=== PATIENT | female | born 1950 | race Caucasian/White ===

== ENCOUNTER 2022-05-26 01:40 | Emergency (ER) | payer MEDICARE, OTHER ==
[~2022-05-26] VITALS: Ht 154 cm; Wt 64.4 kg
[2022-05-26] MEDS ORDERED: methylPREDNISolone 125 MG (Solu-MEDROL) VIAL IV STA (02:04)
[2022-05-26 02:10] LABS: BASOPHILS % (AUTO) 1 % (0-10); EOSINOPHILS # (AUTO) 0.3 10^3/uL (0.0-0.3); EOSINOPHILS % (AUTO) 4 % (0-10); HEMATOCRIT 41 % (35-52); HEMOGLOBIN 13.8 g/dL (11.5-16.0); LYMPHOCYTES % (AUTO) 31 % (12-44); MEAN CORPUSCULAR HEMOGLOBIN 30 pg (25-34); MEAN CORPUSCULAR HGB CONC 34 g/dL (32-36); MEAN CORPUSCULAR VOLUME 90 fL (80-99); MEAN PLATELET VOLUME 9.7 fL (9.0-12.2); MONOCYTES # (AUTO) 0.6 10^3/uL (0.0-1.0); MONOCYTES % (AUTO) 9 % (0-12); NEUTROPHILS # (AUTO) 3.7 10^3/uL (1.8-7.8); NEUTROPHILS % (AUTO) 56 % (42-75); PLATELET COUNT 294 10^3/uL (130-400); WHITE BLOOD COUNT 6.6 10^3/uL (4.3-11.0)
--- NOTE | 2022-05-26 02:14 | ED Respiratory ---
General Chief Complaint: Respiratory Problems Stated Complaint: ASTHMA Nursing Triage Note: TO ED VIA POV AND AMBULATORY TO ROOM 7 WITH C/O ASTHMA ATTACK. PT STATES "ITS BEEN 25 YEARS SINCE I'VE HAD ONE". SITTING WATCHING TV WHEN STARTED APPROX 2000 TONIGHT. Source: patient History of Present Illness Date Seen by Provider: May 26, 2022 Time Seen by Provider: 01:55 Initial Comments PT ARRIVES VIA POV FROM HOME WITH A MALE PT STATES SHE IS HAVING AN "ASTHMA ATTACK" C/O SUDDEN ONSET OF SHORTNESS OF BREATH AND WHEEZING AT 2000 TONIGHT WHILE SITTING AND WATCHING TV PT STATES SHE HAS NOT HAD ANY PROBLEMS WITH ASTHMA FOR 25 YEARS AND HAS NOT HAD AN INHALER FOR 25 YEARS SHE DENIES ANY HISTORY OF SMOKING, SECOND HAND SMOKE, OR WOOD BURNING STOVE/FURNACE/FIREPLACE. NO CHEST PAIN NO SWELLING IN LEGS/FEET OR PAIN IN CALVES NO COUGH OR URI SYMPTOMS NO FEVER NO DIZZINESS OR SYNCOPE SHE STATES HER THROAT FEELS TIGHT NO SWELLING ANYWHERE NO RASH OR ITCHING ANYWHERE NO NEW MEDICATIONS, PRODUCTS OR EXPOSURES PT STATES SHE HAS HAD COVID VACCINE X 4, AND FLU VACCINE FOR THIS SEASON SHE MOVED FROM [place] TO [place], [place] 5 YEARS AGO, AND THEN MOVED FROM [place] TO [facility] 5 MONTHS AGO SHE HAS NOT SEE ANY DR RECENTLY, AND HAS A NEW PT APPOINTMENT WITH DR. TRIMBLE 06/21/22 SHE HAS HISTORY OF DIABETES--WAS ON INSULIN, THEN HAD GASTRIC BYPASS SURGERY 20 YEARS AGO, AND IS NOW ONLY ON ORAL DIABETIC MEDICATION. SHE HAS HISTORY OF THYROID CANCER MANY YEARS AGO--S/P THYROIDECTOMY AND EXTERNAL RADIATION. NO HISTORY OF HTN OR HEART DISEASE. Allergies and Home Medications Allergies Coded Allergies: Sulfa (Sulfonamide Antibiotics) (Verified Allergy, Unknown, 05/26/22) Patient Home Medication List Home Medication List Reviewed: Yes Review of Systems Review of Systems Constitutional: no symptoms reported EENTM: see HPI Respiratory: see HPI; No cough; wheezing Cardiovascular: no symptoms reported; No chest pain, No edema, No palpitations, No syncope Gastrointestinal: no symptoms reported Genitourinary: no symptoms reported Musculoskeletal: no symptoms reported Skin: no symptoms reported Psychiatric/Neurological: No Symptoms Reported Hematologic/Lymphatic: No Symptoms Reported Immunological/Allergic: no symptoms reported Past Tyvgylu-Uiylvs-Hvcziq Hx Patient Social History Tobacco Use?: No Smoking Status: Never a Smoker Smokeless Tobacco Frequency: Never a User Use of E-Cig and/or Vaping Jus: Never a User Substance use?: No Alcohol Use?: No Immunizations Up To Date Influenza Vaccine Up-to-Date: Yes; Up-to-Date COVID19 Vaccine Public Policy Manager: STATES 4 COVID VACCINES Past Medical History Surgeries: Yes (GASTRIC BYPASS 20 YEARS AGO; THYROIDECTOMY FOR CANCER) Abdominal, Thyroidectomy Respiratory: Yes Asthma Cardiac: No Neurological: No WEB APPLICATION TESTER History: Menopausal Genitourinary: No Gastrointestinal: Yes (GASTRIC BYPASS) Musculoskeletal: Yes Arthritis Endocrine: Yes (WAS ON INSULIN PRIOR TO GASTRIC BYPASS, NOW ON ORAL MEDICATION) Diabetes, Non-Insulin dep HEENT: No Cancer: Yes Thyroid Did You Recieve Any Treatments: Yes What Type of Treatment Did You: Radiation, Surgical Intervention THYROID CANCER--S/P TOTAL THYROIDECTOMY AND EXTERNAL RADIATION--MANY YEARS AGO Psychosocial: No Integumentary: No Blood Disorders: No Physical Exam Vital Signs - First Documented 05/26/22 05/26/22 01:52 02:29 Temp 36.5 Pulse 91 Resp 16 B/P (MAP) 176/104 (128) Pulse Ox 95 O2 Delivery Room Air O2 Flow Rate 0 FiO2 21 Capillary Refill : Less Than 3 Seconds Height: '" Weight: lbs. oz. kg; 27.00 BMI Method: General Appearance: WD/WN, no apparent distress, other (TALKS LOUDLY IN FULL SENTENCES. SHE HAS AUDIBLE EXPIRATORY WHEEZING--ALL UPPER AIRWAY NOISE, BUT DOES NOT APPEAR TO BE IN ANY DISCOMFORT OR DISTRESS. 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, no motor/sensory deficits, alert, normal mood/affect, oriented x 3 Skin: normal color, warm/dry Progress/Results/Core Measures Suspected Sepsis SIRS Temperature: Pulse: 91 Respiratory Rate: 16 Laboratory Tests 05/26/22 02:00: White Blood Count 6.6 Blood Pressure 176 /104 Mean: 128 Laboratory Tests 05/26/22 02:00: Creatinine 0.76, INR Comment 0.9, Platelet Count 294, Total Bilirubin 0.4 Results/Orders Lab Results Laboratory Tests Test 05/26/22 02:00 05/26/22 02:03 05/26/22 02:13 Range/Units White Blood Count 6.6 4.3-11.0 10^3/uL Red Blood Count 4.56 3.80-5.11 10^6/uL Hemoglobin 13.8 11.5-16.0 g/dL Hematocrit 41 35-52 % Mean Corpuscular Volume 90 80-99 fL Mean Corpuscular Hemoglobin 30 25-34 pg Mean Corpuscular Hemoglobin Concent 34 32-36 g/dL Red Cell Distribution Width 13.2 10.0-14.5 % Platelet Count 294 130-400 10^3/uL Mean Platelet Volume 9.7 9.0-12.2 fL Immature Granulocyte % (Auto) 0 % Neutrophils (%) (Auto) 56 42-75 % Lymphocytes (%) (Auto) 31 12-44 % Monocytes (%) (Auto) 9 0-12 % Eosinophils (%) (Auto) 4 0-10 % Basophils (%) (Auto) 1 0-10 % Neutrophils # (Auto) 3.7 1.8-7.8 10^3/uL Lymphocytes # (Auto) 2.0 1.0-4.0 10^3/uL Monocytes # (Auto) 0.6 0.0-1.0 10^3/uL Eosinophils # (Auto) 0.3 0.0-0.3 10^3/uL Basophils # (Auto) 0.0 0.0-0.1 10^3/uL Immature Granulocyte # (Auto) 0.0 0.0-0.1 10^3/uL Prothrombin Time 12.6 12.2-14.7 SEC INR Comment 0.9 0.8-1.4 Activated Partial Thromboplast Time 27 24-35 SEC Sodium Level 145 135-145 MMOL/L Potassium Level 3.8 3.6-5.0 MMOL/L Chloride Level 107 98-107 MMOL/L Carbon Dioxide Level 24 21-32 MMOL/L Anion Gap 14 5-14 MMOL/L Blood Urea Nitrogen 16 7-18 MG/DL Creatinine 0.76 0.60-1.30 MG/DL Estimat Glomerular Filtration Rate 82 BUN/Creatinine Ratio 21 Glucose Level 74 70-105 MG/DL Calcium Level 9.2 8.5-10.1 MG/DL Corrected Calcium 8.9 8.5-10.1 MG/DL Magnesium Level 2.0 1.6-2.4 MG/DL Total Bilirubin 0.4 0.1-1.0 MG/DL Aspartate Amino Transf (AST/SGOT) 22 5-34 U/L Alanine Aminotransferase (ALT/SGPT) 13 0-55 U/L Alkaline Phosphatase 60 40-136 U/L Troponin I < 0.028 <0.028 NG/ML B-Type Natriuretic Peptide < 10.0 <100.0 PG/ML Total Protein 8.0 6.4-8.2 GM/DL Albumin 4.4 3.2-4.5 GM/DL Glucometer 73 70-110 MG/DL Influenza Type A (RT-PCR) Not Detected Not Detecte Influenza Type B (RT-PCR) Not Detected Not Detecte SARS-CoV-2 RNA (RT-PCR) Not Detected Not Detecte My Orders Orders - CAROLYN FLANNERY DO Ed Iv/Invasive Line Start (05/26/22 01:56) Monitor-Rhythm Ecg Trace Only (05/26/22 01:56) Accucheck Stat ONCE (05/26/22 02:04) Ekg Tracing (05/26/22 02:04) Chest 1 View, Ap/Pa Only (05/26/22 02:04) Bnp [place] (05/26/22 02:04) Cbc With Automated Diff (05/26/22 02:04) Comprehensive Metabolic Panel (05/26/22 02:04) Magnesium (05/26/22 02:04) Protime With Inr (05/26/22 02:04) Troponin I [place] (05/26/22 02:04) Covid 19 Inhouse Test (05/26/22 02:04) Rt Epinephrine (Racemic Epinephrine 2.25 (05/26/22 02:15) Dexamethasone Injection (Decadron Injec (05/26/22 02:15) Rt Request For Service (05/26/22 02:04) Methylprednisolone Sod Succ (Solu-Medrol (05/26/22 02:04) Influenza A And B By Pcr (05/26/22 02:04) Isolation Central Supply Req (05/26/22 02:04) Hypertonic Saline 3% Neb (Rt-Hypertonic (05/26/22 02:15) Svn Small Volume Nebulizer (05/26/22 02:04) Albuterol/Ipra Inhalation Soln (Duoneb I (05/26/22 02:45) Svn Small Volume Nebulizer (05/26/22 02:34) Partial Thromboplastin Time (05/26/22 02:34) Rx-Albuterol Inhaler (Rx-Ventolin Hfa In (05/26/22 04:51) Medications Given in ED Current Medications Medications Dose Ordered Sig/Pati Route Start Time Stop Time Status Last Admin Dose Admin Albuterol/ Ipratropium 3 ml ONCE ONCE INH 05/26/22 02:45 05/26/22 02:46 DC 05/26/22 02:38 3 ML Dexamethasone Sodium Phosphate 20 mg ONCE ONCE IH 05/26/22 02:15 05/26/22 02:16 DC 05/26/22 02:21 20 MG Epinephrine 0.5 ml ONCE ONCE INH 05/26/22 02:15 05/26/22 02:16 DC 05/26/22 02:21 0.5 ML Sodium Chloride Hypertonic 15 ml ONCE ONCE IH 05/26/22 02:15 05/26/22 02:16 DC 05/26/22 02:22 15 ML Vital Signs/I&O 05/26/22 05/26/22 05/26/22 05/26/22 01:52 02:00 02:29 02:39 Temp 36.5 Pulse 91 Resp 16 B/P (MAP) 176/104 (128) Pulse Ox 95 100 100 O2 Delivery Room Air Room Air Room Air O2 Flow Rate 0 0 FiO2 21 21 Capillary Refill : Less Than 3 Seconds Blood Pressure Mean: 128 Progress Note : Progress Note PPE WORN COVID AND FLU TESTING DONE GIVEN: -SOLU-MEDROL -NEB TREATMENTS COMPLETE RESOLUTION OF SYMPTOMS WITH THE ABOVE. PT OBSERVED IN ER FOR 3 HOURS WITH NO RETURN OF SYMPTOMS NO COUGH NO HYPOXIA NO DYSPNEA NO PRIOR VISITS HERE SENT HOME WITH SPACER AND INSTRUCTED ON USE, WELL ALBUTEROL INHALER. REVIEWED TEST RESULTS, ANTICIPATED COURSE, MEDICATIONS, NEED FOR FOLLOW UP AND R ETURN PRECAUTIONS. ECG Initial ECG Impression Date: May 26, 2022 Initial ECG Impression Time: 02:12 Initial ECG Rate: 75 Initial ECG Rhythm: Normal Sinus Initial ECG Comparisson: No Previous ECG Available Diagnostic Imaging Comments CXR--NO ACUTE PROCESS, PENDING RADIOLOGIST REVIEW Reviewed: Reviewed by Me Departure Impression Primary Impression: Acute asthma flare Additional Impressions: NIDDM Hypothyroidism Disposition: 01 HOME, SELF-CARE Condition: Improved Departure-Patient Inst. Decision time for Depature: 04:49 Referrals: NO,LOCAL PHYSICIAN (PCP/Family) Primary Care Physician Patient Instructions: How to Use Your Metered Dose Inhaler (Adults), Asthma, Adult (DC) Add. Discharge Instructions: HOME, REST USE YOUR ALBUTEROL INHALER WITH SPACER, EVERY 4 HOURS NEEDED FOR WHEEZING OR SHORTNESS OF BREATH KEEP YOUR APPOINTMENT WITH DR. TRIMBLE NEXT MONTH. All discharge instructions reviewed with patient and/or family. Voiced understanding. CAROLYN FLANNERY DO May 26, 2022 02:14
[2022-05-26] MEDS ORDERED: RT-HYPERTONIC SALINE 3% 4 ML NEB IH ONE (02:15)
[2022-05-26] MEDS ORDERED: RT-epiNEPHrine (RACEMIC) 2.25% 0.5 ML VIAL INH ONE (02:15)
[2022-05-26 02:17] LABS: INR 0.9 (0.8-1.4); PROTHROMBIN TIME PATIENT 12.6 SEC (12.2-14.7)
[2022-05-26 02:33] LABS: ALANINE AMINOTRANSFERASE 13 U/L (0-55); ALBUMIN 4.4 GM/DL (3.2-4.5); ALKALINE PHOSPHATASE 60 U/L (40-136); BILIRUBIN,TOTAL 0.4 MG/DL (0.1-1.0); BUN/CREATININE RATIO 21; CALCIUM 9.2 MG/DL (8.5-10.1); CARBON DIOXIDE 24 MMOL/L (21-32); CHLORIDE 107 MMOL/L (98-107); CREATININE SERUM 0.76 MG/DL (0.60-1.30); GFR ESTIMATED 82; GLUCOSE 74 MG/DL (70-105); POTASSIUM 3.8 MMOL/L (3.6-5.0); SODIUM 145 MMOL/L (135-145)
[2022-05-26] MEDS ORDERED: RT-ALBUTEROL/IPRATROPIUM 3 ML (DUONEB) VIAL INH ONE (02:45)
[2022-05-26] MEDS ORDERED: RX-ALBUTEROL INHALER 8.5 GM HFA (PROAIR) IH STA (04:51)
[2022-05-26 05:17] VITALS: BP 139/70
--- NOTE | 2022-05-26 06:21 | Diagnostic Imaging Report ---
INDICATION: Dyspnea. FINDINGS: The heart size, mediastinal configuration, and pulmonary vascularity are within normal limits. There is no pleural effusion, pneumothorax, or pneumonia. The osseous structures are unremarkable. IMPRESSION: No acute cardiopulmonary abnormality. Dictated by: Dictated on workstation # [id number]
== END 2022-05-26 05:17 | disposition home or self-care (01) ==
LOC: ER 01:43
DX: J45.909 Unspecified asthma, uncomplicated (principal); E03.9 Hypothyroidism, unspecified; E11.9 Type 2 diabetes mellitus without complications; Z79.84 Long term (current) use of oral hypoglycemic drugs; Z28.310 Unvaccinated for COVID-19
CPT/HCPCS: 36415; 71045; 80053; 82947; 83735; 83880; 84484; 85025; 85610; 85730; 87636; 93005; 93041; 94640

== ENCOUNTER → 2022-11-11 | Outpatient (CLI) | payer MEDICARE ==
--- NOTE | 2022-11-11 16:41 | Diagnostic Imaging Report ---
Indication: Routine screening. Comparison is made with prior mammogram from 12/29/2020. 2-D and 3-D bilateral screening mammography was performed with CAD. Both breasts are heterogeneously dense, limiting the sensitivity of mammography. There is a biopsy clip in the upper outer left breast. No new mass or malignant-appearing microcalcifications are seen. There are scattered benign parenchymal and vascular calcifications bilaterally. Axillae are unremarkable. IMPRESSION: BI-RADS Category 2 No mammographic features suspicious for malignancy are identified. ACR BI-RADS Category 2: Benign findings. Result letter will be mailed to the patient. Note: At least 10% of breast cancer is not imaged by mammography. Dictated by: Dictated on workstation # [id number]
== END ==
LOC: RAD 07:31
PROVIDERS: ATTEND Nurse Practitioner Family
DX: Z12.31 Encounter for screening mammogram for malignant neoplasm of breast (principal)
CPT/HCPCS: 77063; 77067